=== PATIENT | female | born 1930 | race Caucasian/White ===

== ENCOUNTER 2017-05-27 13:28 | Emergency (ER) | payer OTHER ==
[~2017-05-27] VITALS: Ht 162.6 cm; Wt 54.4 kg
[~2017-05-27 13:28] MED LIST: CLONAZEPAM1 MG PO; GLIPIZIDE2.5 MG/BO1 PO; LIPITOR40 MG PO; NEURONTIN800 MG PO; PAXIL CR25 MG PO; PERSANTINE25 MG PO; PRILOSEC10 MG PO
[2017-05-27] MEDS ORDERED: PLAVIX75 MG (14:17)
== END 2017-05-27 19:28 | disposition home or self-care (01) ==
LOC: ER 13:28
DX: K52.89 Other specified noninfective gastroenteritis and colitis (principal)

== ENCOUNTER 2018-04-15 09:37 | Emergency (ER) | payer OTHER ==
[~2018-04-15] VITALS: Ht 160 cm; Wt 44.5 kg
[~2018-04-15 09:37] MED LIST changes: +PLAVIX75 MG
== END 2018-04-15 12:11 | disposition home or self-care (01) ==
LOC: ER 09:37
DX: K29.60 Other gastritis without bleeding (principal)